=== PATIENT | female | born 1990 | race Caucasian/White ===

== ENCOUNTER 2019-06-14 01:56 | Inpatient (IN) | payer OTHER ==
[2019-06-14 02:51] VITALS: BP 116/64
[2019-06-14] MEDS ORDERED: RINGERS SOLUTION,LACTATED 1,000 ML IV PRN (05:58)
[2019-06-14] MEDS ORDERED: OXYTOCIN 30 UNITS/LACT RINGERS 500 ML IV ONE (05:58)
[2019-06-14] MEDS ORDERED: CITRIC ACID/SODIUM CITRATE 30 ML SOLUTION UDCUP PO PRN (06:00)
[2019-06-14] MEDS ORDERED: METOCLOPRAMIDE HCL 5 MG/ML 2 ML VIAL IVP PRN (06:00)
[2019-06-14] MEDS ORDERED: AZIT250T9 PO (06:33)
[2019-06-14 06:39] LABS: BASOPHILS % (AUTO) 0.3 % (0.0-2.0); EOSINOPHILS % (AUTO) 0.2 % (1.0-6.0); HEMOGLOBIN 10.6 g/dL (12.0-16.0); LYMPHOCYTES # (AUTO) 1.1 K/uL (1.0-4.8); LYMPHOCYTES % (AUTO) 10.1 % (22.0-44.0); MEAN CORPUSCULAR HEMOGLOBIN 28.6 pg (26.0-34.0); MEAN CORPUSCULAR HGB CONC 33.2 G/dL (31.0-37.0); MEAN CORPUSCULAR VOLUME 86 fL (80-100); MONOCYTES # (AUTO) 0.8 K/uL (0.1-1.0); NEUTROPHILS # (AUTO) 8.9 K/uL (1.8-7.7); NEUTROPHILS % (AUTO) 82.4 % (40.0-70.0); PLATELET COUNT (AUTO)-OB 186 K/uL (150-450); RED BLOOD CELL COUNT(AUTO) 3.72 MIL/uL (4.00-5.20); RED CELL DISTRIBUTION WIDTH 14.2 % (11.5-14.5)
[2019-06-14] MEDS: FentaNYL CITRATE-PF 100 MCG/2 ML VIAL IVP PRN ×3 (07:29→10:43)
[2019-06-14] MEDS ORDERED: OXYGEN THERAPY IH SCH (08:00)
[2019-06-14] MEDS ORDERED: OXYTOCIN 30 UNITS/LACT RINGERS 500 ML IV PRN (08:16)
[2019-06-14] MEDS: RINGERS SOLUTION,LACTATED 1,000 ML IV SCH ×2 (09:22→10:44)
[2019-06-14] MEDS ORDERED: ROPIVACAINE HCL/PF 0.2% 100 ML ED ONE ×2 (09:39→16:32)
[2019-06-14] MEDS ORDERED: DiphenhydrAMINE HCL 50 MG/ML VIAL IVP PRN (10:00)
[2019-06-14] MEDS ORDERED: BISACODYL 10 MG RECTAL RECTAL SUPPOSITORY PR ONE (11:30)
[2019-06-14] MEDS: ONDANSETRON HCL 4 MG/2 ML VIAL IVP PRN ×2 (12:17→18:34)
[2019-06-14] MEDS ORDERED: ROPIVACAINE HCL/PF 0.2% 100 ML ED PRN (17:30)
[2019-06-14] MEDS ORDERED: BUPIVACAINE 0.25%/EPI 1:200,000/PF 10 ML VIAL ONE (18:32)
[2019-06-14] MEDS ORDERED: OXYTOCIN 20 UNITS/LACT RINGERS 1,000 ML IV ONE (20:45)
[2019-06-14] MEDS: CeFAZolin 1 GM/DEXTROSE 50 ML IV SCH (21:48)
[2019-06-14] MEDS ORDERED: GLYCERIN/WITCH HAZEL LEAF 40 PADS JAR TP PRN (22:15)
[2019-06-14] MEDS ORDERED: LANOLIN 7 GM OINTMENT TP PRN (22:15)
[2019-06-14] MEDS ORDERED: ACETAMINOPHEN/CODEINE 300-30 MG TABLET PO PRN (22:15)
[2019-06-14] MEDS ORDERED: BENZOCAINE 20%/MENTHOL 56 GM SPRAY CANISTER TP PRN (22:15)
[2019-06-14] MEDS: IBUPROFEN 600 MG TABLET PO PRN (23:39)
[2019-06-15 05:33] LABS: BASOPHILS % (AUTO) 0.1 % (0.0-2.0); EOSINOPHILS % (AUTO) 0 % (1.0-6.0); LYMPHOCYTES # (AUTO) 0.9 K/uL (1.0-4.8); MEAN CORPUSCULAR HEMOGLOBIN 28.4 pg (26.0-34.0); MEAN CORPUSCULAR HGB CONC 33.3 G/dL (31.0-37.0); MEAN CORPUSCULAR VOLUME 85 fL (80-100); MONOCYTES # (AUTO) 1.3 K/uL (0.1-1.0); MONOCYTES % (AUTO) 8.5 % (2.0-9.0); NEUTROPHILS # (AUTO) 13.2 K/uL (1.8-7.7); PLATELET COUNT (AUTO)-OB 142 K/uL (150-450); RED BLOOD CELL COUNT(AUTO) 2.72 MIL/uL (4.00-5.20); RED CELL DISTRIBUTION WIDTH 14.3 % (11.5-14.5)
[2019-06-15 05:38] LABS: NEUTROPHILS % (AUTO) 85.4 % (40.0-70.0)
[2019-06-15] MEDS: CeFAZolin 1 GM/DEXTROSE 50 ML IV SCH (05:40)
[2019-06-15 05:42] LABS: HEMOGLOBIN 7.7 g/dL (12.0-16.0)
[2019-06-15 05:43] LABS: HEMATOCRIT 23.1 % (36-46)
[2019-06-15] MEDS: MAGNESIUM HYDROXIDE SUSPENSION 30 ML UDCUP PO PRN ×2 (08:20→21:09)
[2019-06-15] MEDS: SENNA/DOCUSATE SODIUM 8.6-50 MG TABLET PO PRN ×2 (08:21→21:09)
[2019-06-15] MEDS: IBUPROFEN 600 MG TABLET PO PRN ×2 (08:21→20:57)
[2019-06-15 12:42] LABS: BASOPHILS % (AUTO) 0.1 % (0.0-2.0); EOSINOPHILS % (AUTO) 0 % (1.0-6.0); HEMATOCRIT 23.1 % (36-46); HEMOGLOBIN 7.7 g/dL (12.0-16.0); LYMPHOCYTES % (AUTO) 6.8 % (22.0-44.0); MEAN CORPUSCULAR HEMOGLOBIN 28.2 pg (26.0-34.0); MEAN CORPUSCULAR HGB CONC 33.1 G/dL (31.0-37.0); MEAN CORPUSCULAR VOLUME 85 fL (80-100); NEUTROPHILS # (AUTO) 11.9 K/uL (1.8-7.7); PLATELET COUNT (AUTO)-OB 145 K/uL (150-450); RED BLOOD CELL COUNT(AUTO) 2.72 MIL/uL (4.00-5.20)
[2019-06-15 12:44] LABS: NEUTROPHILS % (AUTO) 86.1 % (40.0-70.0)
[2019-06-15] MEDS ORDERED: PHENYLEPHRINE/SHK LV/MIN OIL/PET 57 GM OINTMENT TP PRN (23:15)
[2019-06-16] MEDS ORDERED: INFLUENZA VIRUS VACCINE QVS 2019-20 (3YR+)/PF 60 MCG/0.5 ML SYRINGE IM ONE (00:45)
[2019-06-16] MEDS: IBUPROFEN 600 MG TABLET PO PRN (08:18)
[2019-06-16] MEDS: SENNA/DOCUSATE SODIUM 8.6-50 MG TABLET PO PRN (08:18)
[2019-06-16] MEDS: MAGNESIUM HYDROXIDE SUSPENSION 30 ML UDCUP PO PRN (08:18)
[2019-06-16] MEDS ORDERED: FERR-89 PO (09:59)
[2019-06-16] MEDS ORDERED: IBUP-2071 PO (09:59)
[2019-06-16] MEDS ORDERED: DOCU-275 PO (10:00)
== END 2019-06-16 11:00 | disposition home or self-care (01) | DRG 807 ==
LOC: 4S 01:56 → OBSVTOIN 01:56
PROVIDERS: ADMIT Obstetrics & Gynecology; ATTEND Obstetrics & Gynecology
PROC: 10E0XZZ Delivery of Products of Conception, External Approach (ICD-10-PCS; principal; 2019-06-14)
PROC: 0KQM0ZZ Repair Perineum Muscle, Open Approach (ICD-10-PCS; 2019-06-14)
PROC: 3E0R3BZ Introduction of Anesthetic Agent into Spinal Canal, Percutaneous Approach (ICD-10-PCS; 2019-06-14)
PROC: 00HU33Z Insertion of Infusion Device into Spinal Canal, Percutaneous Approach (ICD-10-PCS; 2019-06-14)
PROC: 3E02340 Introduction of Influenza Vaccine into Muscle, Percutaneous Approach (ICD-10-PCS; 2019-06-16)
DX: O70.1 Second degree perineal laceration during delivery (principal); Z37.0 Single live birth; Z3A.39 39 weeks gestation of pregnancy; Z23 Encounter for immunization
CPT/HCPCS: 86850; 86900; 86901; 90686; J0690; J2405; J2590; J2795; J3010; J3490; J7120